=== PATIENT | female | born 1950 | race Caucasian/White ===

== ENCOUNTER 2019-05-23 07:53 | Day surgery (SDC) | payer MEDICARE, SELFPAY ==
--- NOTE | 2019-05-22 19:40 | PM.PREOP ---
Pre-operative Note Interval Note History & Physical reviewed/Exam performed by Physician: Yes Changes to H&P: No
[2019-05-23] MEDS: CATARACT EYE COMPOUND (10 DROPS/SYRINGE) 3 DROPS EYE-OP (08:09)
[2019-05-23] MEDS: PROPARACAINE 0.5% OPHTH SOL 2 DROPS EYE-OP (08:10)
[2019-05-23 08:14] VITALS: BP 107/59; PULSE 60; RESP 16; TEMP 36.4; O2SAT 97; BMI 19.6
--- NOTE | 2019-05-23 08:54 | PM.OP.1 ---
Operative Date/Time/Diagnoses Date of procedure: 05/23/19 Time of procedure: 08:45 Procedure & Clinicians Procedure: Preoperative diagnoses: 1. Left advanced nuclear sclerotic and cortical cataract. 2. Previous retinal procedures. 3. Astigmatism which she elects to correct with a depth of focus toric intra-ocular lens. 4. Mild epiretinal membrane. Postoperative diagnoses: 1. Cataract removed by phacoemulsification with placement of a toric Symfony posterior chamber intraocular rabia at axis 042 degrees. Procedure: Phacoemulsification with Symfony toric posterior chamber intraocular lens implant Surgeon: Yazmin Ramirez MD Complications: None Specimen: None Implant: [id number] +21.5 [place] 042. Blood loss: None Anesthesia: Retrobulbar with monitored standby Description of procedure: Patient presents with a complaint of decreased vision due to cataract which is affecting activities of daily living. The patient wants surgery to improve vision. She has several risk factors for a multi focal implant including mild epiretinal membrane, dense scatter, previous retinal procedures and a higher angle kappa. However she has restore intra-ocular lens in her right eye and wishes the closest possible to her left preopoperatively. It is felt that this infinity toric intra-ocular lens will give her the last visual distortion and best range of vision and she select that with a distance implant. She is aware that if there were any problems during the surgery would not be implanted. The patient was taken to the operating room and given IV sedation. She is placed into a sitting position indelible ink herring were placed at the 90 and 180 degree meridian. She has then placed on operating room table. A retrobulbar block consisting of 6 cc of 2% xylocaine without epinephrine mixed half and half with 0.5% Marcaine with 1 cc of hyaluronidase added is placed between the medial and lateral 1/3 of the inferior orbital rim. The eye is manually massaged for 30 sec, prepped using Betadine solution, and draped in the usual sterile fashion. Temporal approach was made, a 1 mm side-port incision was made 90? from the proposed clear corneal incision position. Phenylephrine 1.5% mixed with 1% xylocaine 0.2 cc was placed into the anterior chamber. Viscoat followed by Healon was then placed. A 2.6 mm clear incision with a 2.6 mm blade was placed. Zonules were strong and intact. A 360 degree capsulorrhexis style capsulotomy was then performed with a cystitome needle on a [employer]on. Hydrodelineation and hydrodissection were performed. The phacoemulsification unit is introduced, and sculpting notice used to groove the central lens. It is then removed in chopping mode. Epi nucleus is removed with epinuclear mode and irrigation aspiration was used to remove the peripheral cortex. The posterior capsule is polished. Indelible ink herring were placed at 042 degree meridian The intraocular lens is selected, inspected, power confirmed, and placed in the posterior chamber. The Visco elastic was removed from the underside of the lens carefully. It was rotated into position and centered just slightly nasal of center to be in the center of the visual axis. The axis was confirmed with multiple markers. The wound was stromally hydrated and tested for leaks, there was none and it was left sutureless. Vigamox 0.1 cc was placed into the anterior chamber. Kenalog 0.2 cc was placed in the superior subconjunctival space. A drop of antibiotic and was placed and the eye was patched and shielded. The patient was stable and returned to the recovery room in excellent condition. Dictated by: Yazmin Ramirez MD Copy to: [facility] Same procedure as scheduled: Yes
[2019-05-23] MEDS: MOXIFLOXACIN INJ 5 MG/ML VIAL EYE-OP (09:21)
[2019-05-23] MEDS: HYALURONATE SODIUM 10 MG/ML SYRINGE INJ (09:21)
[2019-05-23] MEDS: CHONDROIDTIN/SOD HYALURONATE 1.05 ML SYRINGE INTRAOCULA (09:21)
[2019-05-23] MEDS: PHENYLEPHRINE/LIDOCAINE VIAL (OR) 0.2 ML EYE-OP (09:22)
[2019-05-23] MEDS: BALANCED SALT IRRIG SOLN NO.2 500 ML, EPINEPHrine 1 MG IRR (09:22)
[2019-05-23] MEDS: TRIAMCINOLONE 50 MG/5 ML VIAL INJ (09:22)
[2019-05-23] MEDS: LIDOCAINE 2% 4 ML, BUPIVACAINE 0.5% (PF) 4 ML, HYALURONIDASE 150 UNIT INJ (09:23)
[2019-05-23] MEDS: ERYTHROMYCIN OPHTH 1 GM OINT 1 APPLIC EYE-LEFT (09:24)
[2019-05-23 09:49] VITALS: BP 120/68; PULSE 68; RESP 16; TEMP 36.5; O2SAT 94
== END 2019-05-23 10:00 | disposition home or self-care (01) ==
LOC: OR 07:57
PROVIDERS: Family Provider Family Medicine; PCP Family Medicine; Visit Provider Ophthalmology
PROC: (CPT 66984; principal; 2019-05-23 08:45)
DX: H25.092 Other age-related incipient cataract, left eye (principal); H52.202 Unspecified astigmatism, left eye; H35.413 Lattice degeneration of retina, bilateral; H35.373 Puckering of macula, bilateral
CPT/HCPCS: 66984; J0171; J2704; J3301; J3470; V2788

== ENCOUNTER → 2019-05-31 09:23 | Outpatient (CLI) | payer MEDICARE, SELFPAY ==
[2019-05-31 10:42] LABS: Albumin 4.6 g/dL (3.5-5.0); BUN Creatinine Ratio 27.1 (6-22); Blood Urea Nitrogen 19 mg/dL (7-17); Calcium 10.6 mg/dL (8.4-10.2); Carbon Dioxide 32 mmol/L (22-32); Chloride 99 mmol/L (98-107); Estimated Glomerular Filt Rate > 60.0 mL/min (>60); Glucose 93 mg/dL (80-110); HEMOLYSIS < 15 (0-50); Potassium 4.5 mmol/L (3.4-5.1); Sodium 138 mmol/L (137-145)
[2019-05-31 11:01] LABS: Vitamin D 25 Hydroxy (D3) 80.9 ng/mL (30.0-100.0)
== END ==
PROVIDERS: Family Provider Family Medicine; PCP Family Medicine
DX: M81.0 Age-related osteoporosis without current pathological fracture (principal); E55.9 Vitamin D deficiency, unspecified
CPT/HCPCS: 36415; 80048; 82040; 82306